=== PATIENT | male | born 1970 | race African-American/Black ===

== ENCOUNTER 2024-04-30 11:45 | Emergency (ER) | payer MEDICAID ==
[~2024-04-30] VITALS: Ht 180.3 cm; Wt 87.4 kg
[~2024-04-30 11:45] MED LIST: CLARITHROMYCIN; CLON0.1T; DICLOMINE; METR500T; OME20GT; PHEN-839; SUCR1TAB
[2024-04-30 12:04] VITALS: BP 135/72; PULSE 117; RESP 18; TEMP 98.1; O2SAT 98
--- NOTE | 2024-04-30 12:09 | ED.PDOC ---
Musculoskeletal HPI Comments A 53 YEAR OLD MALE PRESENTS TO THE ED WITH COMPLAINT OF RIGHT 4TH FINGER INJURY STATUS POST FALL. 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 PATIENT REPORTS HE IS NOW EXPERIENCING RIGHT 4TH FINGER PAIN AND NOTES HE SUSTAINED A SMALL SKIN AVULSION TO HIS RIGHT 4TH FINGER. BLEEDING IS CONTROLLED AT THIS TIME. PATIENT DENIES HEAD INJURY, NECK INJURY, LOC, FEVER, CHILLS, SHORTNESS OF BREATH, CHEST PAIN, ABDOMINAL PAIN, NAUSEA, VOMITING, HEADACHE, OR OTHER COMPLAINTS. NO OTHER SYMPTOMS OR MODIFYING FACTORS AT THIS TIME. PATIENT IS ALERT, ORIENTED X 4, AND HAS STEADY GAIT. Chief Complaint: Upper Extremity Time Seen by MD: 11:48 Primary Care Provider: PHILIPPE Arambula Notes: Nurses Notes, Medications, Allergies Allergies: Coded Allergies: NO KNOWN ALLERGIES (Unverified , 02/17/11) Home Meds Active Scripts Acetaminophen (Tylenol 8 Hour Arthritis) 650 Mg Tab, 650 MG PO TID, #30 TAB Prov:WILMER CASEY 04/30/24 Reported Medications Metronidazole (Flagyl) 500 Mg Tab 02/17/11 [Clarythromycin] No Conflict Check 02/17/11 Omeprazole (Prilosec Susp (For Gt)) 20 Mg Ss 02/17/11 Sucralfate (Sucralfate) 1 Gm Tab 02/17/11 Belladonna Alkaloids-Phenobarb () Tab 02/17/11 [Diclomine] No Conflict Check 02/17/11 Clonidine Hydrochloride (Clonidine Hcl) 0.1 Mg Tab 02/17/11 Information Source: Patient Mode of Arrival: Ambulatory Location: Right Extremity Location: Finger 4 Timing: Hours Prehospital treatment: None Severity: Moderate Able to Move Extremity: Yes Bear Weight: Fully Pain: Moderate Mechanism: Blunt Trauma Circumstances: Sporting, Fall Onset of Symptoms: After Trauma Symptoms: Pain DVT Risk Factors: NONE Last Tetanus: Unknown Associated signs and symptoms: None Past Medical History PAST MEDICAL HISTORY: Denies Surgical History: Denies all surgeries Family History Family History: Reviewed,noncontributory to illness Social History Smoker: Non-Smoker Alcohol: Denies ETOH Use Drugs: Denies Drug Use Lives In: Home Constitutional: denies: chills, diaphoresis, fatigue, fever, malaise, sweats, weakness, others EENTM: denies: blurred vision, double vision, ear bleeding, ear discharge, ear drainage, ear pain, ear ringing, eye pain, eye redness, hearing loss, mouth pain, mouth swelling, nasal discharge, nose bleeding, nose congestion, nose pain , photophobia, tearing, throat pain, throat swelling, voice changes, others Respiratory: denies: cough, hemoptysis, orthopnea, SOB at rest, shortness of breath, SOB with excertion, stridor, wheezing, others Cardiovascular: denies: chest pain, dizzy spells, diaphoresis, Dyspnea on exertion, edema, irregular heart beat, left arm pain, lightheadedness, palpitations, PND, syncope, others Gastrointestinal: denies: abdomen distended, abdominal pain, blood streaked bowels, constipated, diarrhea, dysphagia, difficulty swallowing, hematemesis, melena, nausea, poor appetite, poor fluid intake, rectal bleeding, rectal pain, vomiting, others Genitourinary: denies: burning, dysuria, flank pain, frequency, hematuria, incontinence, penile discharge, penile sore, pain, testicle pain, testicle swelling, urgency, others Neurological: denies: dizziness, fainting, headache, left sided numbness, left sided weakness, numbness, paresthesia, pre-existing deficit, right sided numbness, right sided weakness, seizure, speech problems, tingling, tremors, weakness, others Musculoskeletal: reports: joint pain, others (RIGHT 4TH FINGER PAIN); denies: back pain, gout, joint swelling, muscle pain, muscle stiffness, neck pain Integumetry: reports: others (SKIN AVULSION OF RIGHT 4TH FINGER); denies: bruises, change in color, change in hair/nails, dryness, laceration, lesions, lumps, rash, wounds Allergic/Immunocompromised: denies: Difficulty Healing, Frequent Infections, Hives, Itching, others Hematologic/Lymphatic: denies: anemia, blood clots, easy bleeding, easy bruising, swollen glands, others Endocrine: denies: excessive hunger, excessive sweating, excessive thirst, excessive urination, flushing, intolerance to cold, intolerance to heat, unexplained weight gain, unexplained weight loss, others Psychiatric: denies: anxiety, bipolar disorder, depression, hopeless, panic d isorder, schizophrenia, sleepless, suicidal, others All Other Systems: Reviewed and Negative Physical Exam General Appearance: No Apparent Distress, Normal HEENT: Normal ENT Inspection, PERRL/EOMI, Pharynx Normal, TMs Normal Neck: Full Range of Motion, Non-Tender, Normal, Normal Inspection Respiratory: Chest Non-Tender, Lungs Clear, No Accessory Muscle Use, No Respiratory Distress, Normal Breath Sounds Cardiovascular: No Edema, No JVD, No Murmur, No Gallop, Normal Peripheral Pulses, Regular Rate/Rhythm Breast Exam: Deferred Gastrointestinal: No Organomegaly, Non Tender, No Pulsatile Mass, Normal Bowel Sounds, Soft Genitalia: Deferred Pelvic: Deferred Rectal: Deferred Extremities: Decreased range of motion, No calf tenderness, Normal capillary refill, No pedal edema, Tender (WITH A SMALL SKIN AVULSION ON RIGHT 4TH FINGER, NO BONY TENDERNESS AND SWELLING, +DEFORMITY ON RIGHT PIP JOINT, DISLOCATION?? ) Musculoskeletal : Apperance: Normal Neurologic: Alert, engineering drafter II-XII nml as Tested, No Motor Deficits, Normal Affect, Normal Mood, No Sensory Deficits Cerebellar Function: Normal Reflexes: Normal Skin: Dry, Normal Color, Warm, Wounds (A SMALL SKIN AVULSION ON RIGHT 4TH FINGER, NO BLEEDING AND FB, NEUROVASCULAR INTACT, NORMAL ROM. ) Peripheral Pulses: 2+ carotid (R), 2+ carotid (L), 2+ Radial (R), 2+ Radial (L) Lymphatic: No Adenopathy Was a procedure done? Was a procedure done?: Yes Sedation Sedation?: No Reduction Indication: Dislocation (RIGHT 4TH FINGER PIP JOINT. ) Intra-articular anesthetic yolanda: No Post-reduction x-ray show: Reduction, Good Alignment Informed consent obtained: No Risks/benefits/alt described: Yes Notes COUNTER PULLING AND MANIPULATION WAS DONE TO THE PATIENT'S RIGHT 4TH FINGER, A "CLICK" WAS HEARD AND FINGER WAS SUCCESSFULLY REDUCED. DEFORMITY WAS REDUCED. FROG SPLINT WAS THEN APPLIED TO PATIENT'S FINGER. PATIENT TOLERATED WELL. Differential Diagnosis EXT Differential Diagnosis: Fracture, Sprain, Dislocation, Laceration, Contusion, Strain Other Differential Diagnosis SKIN AVULSION, PUNCTURE WOUND X-Ray, Labs, Meds, VS Vital Signs Date Time Temp Pulse Resp B/P (MAP) Pulse Ox O2 Delivery O2 Flow Rate FiO2 04/30/24 12:04 98.1 117 18 135/72 (93) 98 98.1 04/30/24 12:04 117 18 98 Room Air 04/30/24 11:51 98.1 117 18 135/72 (93) 98 Current Medications Medications (Trade) Dose Ordered Sig/Lori Route Start Time Stop Time Status Last Admin Acetaminophen (Tylenol Tablet) 1,000 mg ONCE ONCE PO 04/30/24 12:45 04/30/24 12:46 DC 04/30/24 12:40 X-Ray, Labs, Meds, VS Comment TYLENOL 1GM PO AND FROG SPLINT WAS APPLIED TO PATIENT'S RIGHT 4TH FINGER. XR HAND RT: [INTERPRETED BY ME. NO ACUTE FRACTURE SEEN. DISLOCATION OF 4TH PIP JOINT VISUALIZED. PENDING RADIOLOGY REVIEW.] XR HAND RT (POST REDUCTION): [INTERPRETED BY ME. NO ACUTE FRACTURE SEEN. SUCCESSFUL REDUCTION OF PATIENT'S 4TH PIP JOINT DISLOCATION VISUALIZED. PATIENT'S FINGER IS NOW IN ANATOMICAL POSITION. PENDING RADIOLOGY REVIEW.] Images Reviewed?: Images reviewed and evaluated by me Time of 1ST Reevaluation: 13:13 Reevaluation 1ST: Improved Patient Education/Counseling: Diagnosis, Treatment, Need For Follow Up Family Education/Counseling: Diagnosis, Treatment, Need For Follow Up Medical Screening: No EMC Exist At This Time Departure 1 Departure Time of Disposition: 13:13 Impression: Primary Impression: Dislocation of proximal interphalangeal joint of right ring finger, initial encounter Disposition: 01 HOME / SELF CARE / HOMELESS Condition: Stable Additional Instructions: FOLLOW-UP WITH PCP IN 1 TO 2 DAYS. TAKE MEDICATIONS PRESCRIBED. RETURN TO ED FOR ANY NEW OR WORSENING SYMPTOMS. e-Prescriptions Acetaminophen (Tylenol 8 Hour Arthritis) 650 Mg Tab 650 MG PO TID, #30 TAB Prov: WILMER CASEY 04/30/24 Discharged With: Self Critical Care Note Critical Care Time?: No Stability Stability form required: No I personally scribed for WILMER CASEY ([email or web address]) on 04/30/24 at 12:09. Electronically submitted by Douglas Ford ([email or web address]). I personally scribed for WILMER CASEY ([email or web address]) on 04/30/24 at 12:51. Electronically submitted by Douglas Ford ([email or web address]). I personally scribed for WILMER CASEY ([email or web address]) on 04/30/24 at 12:54. Electronically submitted by Douglas Ford ([email or web address]). WILMER CASEY Apr 30, 2024 12:09
[2024-04-30] MEDS: ACETAMINOPHEN 500 MG TAB PO ONE ×2 (12:40)
[2024-04-30] MEDS ORDERED: ACET-1080 PO (12:43)
--- NOTE | 2024-04-30 13:13 | DVH ---
CLINICAL INDICATION: INJURY TECHNIQUE: 3 radiographic views of the right 4th digit were obtained. Comparison: None FINDINGS/IMPRESSION: There is dorsal dislocation of the middle phalanx of the 4th digit on the proximal phalanx with about 5 mm bony overlap. There is 2 mm density medial to the 4th digit middle phalanx head which may represent a small avulsed bony fragment of unknown chronicity / nonspecific soft tissue calcification.
--- NOTE | 2024-04-30 13:40 | DVH ---
CLINICAL INFORMATION: 53 years old, Male; postreduction. TECHNIQUE: 3 views of the 4th digit of the right hand were obtained. COMPARISON: None FINDINGS: Interval reduction of the 4th digit PIP joint, now in anatomic alignment. No adjacent acute fracture visualized. Grossly stable appearance of a small 2 mm ossicle adjacent to the ulnar aspect of the head of the middle phalanx of the 4th digit. Mild soft tissue swelling in the 4th digit. IMPRESSION: Interval reduction of the 4th digit PIP joint as described above.
== END 2024-04-30 12:53 | disposition home or self-care (01) ==
LOC: ER 11:45
DX: S63.284A Dislocation of proximal interphalangeal joint of right ring finger, initial encounter (principal); W01.0XXA Fall on same level from slipping, tripping and stumbling without subsequent striking against object, initial encounter; Y93.73 Activity, racquet and hand sports; Z79.899 Other long term (current) drug therapy; Y99.8 Other external cause status
CPT/HCPCS: 26770; 73140